=== PATIENT | female | born 1990 | race Caucasian/White ===

== ENCOUNTER 2021-08-10 08:23 | Emergency (ER) | payer OTHER ==
[~2021-08-10] VITALS: Ht 162.6 cm; Wt 59.4 kg
--- NOTE | 2021-08-10 10:03 | EKG ---
[place] [address] ELECTROCARDIOGRAM REPORT Name: ANDREWS LLAMAS Room: [facility]#: [id number] Admission: 08/10/21 Attend Phys: Discharge: Date of : 89 Date of Service: 08/10/21828 Report #: [id number] THIS REPORT FOR: //name// [facility] ED Test Date: 2021-08-10 Test Time: 08:29:14 Pat Name: ANDREWS LLAMAS Department: Room: Gender: [employer] Supervisor: [facility] : 1990 Requested By: Vasile Nolen Order Number: [id number] MD: Augie Arias Measurements Intervals [place] Rate: 66 P: 66 [place]: 142 QRS: 81 QRSD: 101 T: 47 QT: 388 QTc: 407 Interpretive Statements Sinus rhythm No previous ECG available for comparison Electronically Signed On 08-10-2021 9:41:00 DIFFUSION OPERATOR by Augie Arias [email or web address] <ELECTRONICALLY SIGNED> By: Augie Arias MD, [facility] 08/10/2141 8 0829 Augie Arias MD, FACC /EPI
[2021-08-10 10:06] VITALS: BP 107/62
== END 2021-08-10 10:07 | disposition home or self-care (01) ==
LOC: M.ERS 08:23
DX: R07.89 Other chest pain (principal); R05.9 Cough, unspecified; R09.89 Other specified symptoms and signs involving the circulatory and respiratory systems; Z98.890 Other specified postprocedural states; Z88.6 Allergy status to analgesic agent; Z88.1 Allergy status to other antibiotic agents; Z88.0 Allergy status to penicillin; Z88.8 Allergy status to other drugs, medicaments and biological substances